=== PATIENT | female | born 1935 | race Caucasian/White ===

== ENCOUNTER → 2016-12-13 | Outpatient (CLI) | payer MEDICARE, OTHER ==
[2016-12-13 13:08] LABS: BLOOD UREA NITROGEN 32 mg/dL (7-18)
[2016-12-13 13:36] LABS: ASPARTATE AMINO TRANSFERASE 36 U/L (15-37)
== END | disposition home or self-care (01) ==
LOC: CFH 10:41
PROVIDERS: ATTEND Family Medicine
DX: Z00.01 Encounter for general adult medical examination with abnormal findings (principal); E78.5 Hyperlipidemia, unspecified; F03.90 Unspecified dementia, unspecified severity, without behavioral disturbance, psychotic disturbance, mood disturbance, and anxiety; I10 Essential (primary) hypertension; N81.9 Female genital prolapse, unspecified; R79.9 Abnormal finding of blood chemistry, unspecified
CPT/HCPCS: 36415; 80053; 80061; 81003; 82306; 82607; 83036; 84443; 85025

== ENCOUNTER → 2017-02-28 | Outpatient (CLI) | payer MEDICARE, OTHER ==
[~2017-02-28] MED LIST: ALPRazolam 1MG TABLET ONE
== END | disposition home or self-care (01) ==
LOC: RAD 13:19
PROVIDERS: ATTEND Family Medicine
DX: S71.011A Laceration without foreign body, right hip, initial encounter (principal); M43.26 Fusion of spine, lumbar region; M25.451 Effusion, right hip; Z96.641 Presence of right artificial hip joint; X58.XXXA Exposure to other specified factors, initial encounter; Y93.89 Activity, other specified; Y92.89 Other specified places as the place of occurrence of the external cause; Y99.8 Other external cause status

== ENCOUNTER 2019-12-03 12:47 | Outpatient (CLI) | payer MEDICARE, OTHER | END 2019-12-03 23:59 | disposition home or self-care (01) | LOC: CVU 12:47 | PROVIDERS: ATTEND Physician Assistant Medical | DX: I65.23 Occlusion and stenosis of bilateral carotid arteries (principal); R09.89 Other specified symptoms and signs involving the circulatory and respiratory systems | CPT/HCPCS: 93880 ==

== ENCOUNTER 2020-02-18 11:25 | Observation (INO) | payer MEDICARE, OTHER ==
[~2020-02-18] VITALS: Ht 162.6 cm; Wt 74.0 kg
[2020-02-18 12:20] LABS: BASOPHILS # (AUTO) 0.05 x10^3/uL (0-0.1); BASOPHILS % (AUTO) 1 % (0-1); EOSINOPHILS # (AUTO) 0.33 x10^3/uL (0-0.4); EOSINOPHILS % (AUTO) 4 % (1-7); LYMPHOCYTES # (AUTO) 1.79 x10^3/uL (1-3.4); LYMPHOCYTES % (AUTO) 21 % (22-44); MD NO; MEAN CORPUSCULAR HEMOGLOBIN 31.1 pg (27.0-34.8); MEAN CORPUSCULAR HGB CONC 32.5 g/dL (32.4-35.8); MEAN CORPUSCULAR VOLUME 95.5 fL (80-100); MEAN PLATELET VOLUME 8.1 fL (7.4-10.4); MONOCYTES % (AUTO) 8 % (2-9); NEUTROPHILS # (AUTO) 5.48 x10^3/uL (1.8-6.8); NEUTROPHILS % (AUTO) 66 % (42-75); PLATELET COUNT 206 x10^3/uL (130-400); RED BLOOD COUNT 3.96 x10^6/uL (3.82-5.3); RED CELL DISTRIBUTION WIDTH 13.7 % (9.6-15.2)
[2020-02-18 12:29] LABS: ALBUMIN 3.7 g/dL (3.4-5.0); ANION GAP 6 mmol/L (5-15); CALCIUM 9.7 mg/dL (8.5-10.1); CHLORIDE 101 mmol/L (98-107)
[2020-02-18 12:34] LABS: ALANINE AMINOTRANSFERASE 22 U/L (12-78); ALKALINE PHOSPHATASE 37 U/L (45-117); BILIRUBIN,TOTAL 0.9 mg/dL (0.2-1.0); TOTAL PROTEIN 7.6 g/dL (6.4-8.2)
[2020-02-18] MEDS: POTASSIUM CHLORIDE 20 MEQ in LACTATED RINGERS 1,000 ML IV SCH (13:12)
--- NOTE | 2020-02-18 13:20 | NUR ---
DAUGHTER AT BEDSIDE. PT RESTING WITH EYES CLOSED. CONTINUE TO MONITOR
[2020-02-18] MEDS ORDERED: POLYETHYLENE GLYCOL 17 GM PACKET PO PRN (13:30)
[2020-02-18] MEDS ORDERED: ONDANSETRON 2MG/ML, 2ML IVPush PRN (13:30)
[2020-02-18] MEDS ORDERED: MELATONIN 5 MG TABLET PO PRN (13:30)
[2020-02-18] MEDS ORDERED: ACETAMINOPHEN 325 MG TABLET PO PRN (13:30)
[2020-02-18] MEDS ORDERED: ONDANSETRON ODT 4 MG PO PRN (13:30)
[2020-02-18] MEDS ORDERED: AMLO10TA8 PO (13:51)
[2020-02-18] MEDS ORDERED: ASPI-496 PO (13:51)
[2020-02-18] MEDS ORDERED: DONE10TA14 PO (13:51)
[2020-02-18] MEDS ORDERED: LEVO75TA PO (13:51)
[2020-02-18] MEDS ORDERED: RISE35TA PO (13:51)
[2020-02-18] MEDS ORDERED: METO200T47 PO (13:51)
[2020-02-18] MEDS ORDERED: MEMA10TA PO (13:51)
[2020-02-18] MEDS ORDERED: ROPI0.5T4 PO (13:51)
[2020-02-18] MEDS ORDERED: GABA600T7 PO ×2 (13:51)
[2020-02-18 13:59] LABS: TROPONIN I < 0.015 ng/mL (0.000-0.045)
[2020-02-18] MEDS ORDERED: ENOXAPARIN 40 MG/0.4 ML SQ SCH (14:00)
--- NOTE | 2020-02-18 14:00 | NUR ---
TO CT VIA [facility]
[2020-02-18] MEDS ORDERED: OMEG1CAP6 PO (14:25)
[2020-02-18] MEDS ORDERED: CALC300T5 PO ×2 (14:25)
--- NOTE | 2020-02-18 14:35 | NUR ---
UOB WITH ASSISTANCE AND ONTO COMMODE. PT NOTED TO HAVE CLOUDY URINE, SENT TO LAB
[2020-02-18 14:45] LABS: MICROSCOPIC AUTO
--- NOTE | 2020-02-18 14:49 | NUR ---
THROUGHPUT RN::SPOKE WITH ISAI FOR ROOM 508. STATED HE HAS ALREAADY READ THROUGH THE CHART. DOES NOT NEEDS REPORT. HAD QUESTION ABOUT D-DIMER, STATED HE WILL CALL HOSPITALIST.
--- NOTE | 2020-02-18 14:57 | NUR ---
ADDITIONAL REPORT TO TANNER SILVERIO ALONG WITH PREVIOUS REPORT FROM S[facility]H
[2020-02-18 15:53] VITALS: BP 139/78
[2020-02-18] MEDS: ENOXAPARIN 30 MG/0.3 ML SQ SCH (15:57)
[2020-02-18] MEDS ORDERED: CEFTRIAXONE PMX 1GM/50ML 50 ML IV SCH (16:30)
[2020-02-18 19:29] LABS: TROPONIN I < 0.015 ng/mL (0.000-0.045)
[2020-02-18 20:50] VITALS: BP 123/71
[2020-02-18] MEDS: ROPINIROLE 0.5MG TABLET PO SCH (20:59)
[2020-02-18] MEDS: MEMANTINE 10MG TABLET PO SCH (20:59)
[2020-02-18] MEDS ORDERED: GABAPENTIN 300 MG CAPSULE PO SCH (21:00)
[2020-02-18] MEDS ORDERED: DONEPEZIL 10 MG TABLET PO SCH (21:00)
[2020-02-19 02:48] VITALS: BP 149/72
[2020-02-19] MEDS: POTASSIUM CHLORIDE 20 MEQ in LACTATED RINGERS 1,000 ML IV SCH ×2 (03:54→17:08)
[2020-02-19 05:30] LABS: BASOPHILS # (AUTO) 0.07 x10^3/uL (0-0.1); BASOPHILS % (AUTO) 1 % (0-1); EOSINOPHILS # (AUTO) 0.29 x10^3/uL (0-0.4); EOSINOPHILS % (AUTO) 5 % (1-7); LYMPHOCYTES # (AUTO) 2.13 x10^3/uL (1-3.4); LYMPHOCYTES % (AUTO) 35 % (22-44); MD NO; MEAN CORPUSCULAR HEMOGLOBIN 31.3 pg (27.0-34.8); MEAN CORPUSCULAR HGB CONC 32.9 g/dL (32.4-35.8); MEAN CORPUSCULAR VOLUME 95.3 fL (80-100); MEAN PLATELET VOLUME 8.4 fL (7.4-10.4); MONOCYTES # (AUTO) 0.67 x10^3/uL (0.2-0.8); MONOCYTES % (AUTO) 11 % (2-9); NEUTROPHILS # (AUTO) 2.93 x10^3/uL (1.8-6.8); NEUTROPHILS % (AUTO) 48 % (42-75); PLATELET COUNT 180 x10^3/uL (130-400); RED BLOOD COUNT 3.51 x10^6/uL (3.82-5.3)
[2020-02-19 05:40] LABS: ALBUMIN 3.2 g/dL (3.4-5.0); ANION GAP 6 mmol/L (5-15); CALCIUM 8.9 mg/dL (8.5-10.1); CHLORIDE 107 mmol/L (98-107)
[2020-02-19 05:43] LABS: ALANINE AMINOTRANSFERASE 18 U/L (12-78); ALKALINE PHOSPHATASE 29 U/L (45-117); BILIRUBIN,TOTAL 0.7 mg/dL (0.2-1.0); CREATININE 1.07 mg/dL (0.55-1.02); TOTAL PROTEIN 6.5 g/dL (6.4-8.2)
[2020-02-19] MEDS ORDERED: LEVOTHYROXINE 75 MCG TABLET PO SCH (06:00)
[2020-02-19 07:22] VITALS: BP 128/69
[2020-02-19] MEDS ORDERED: OMEGA-3/FISH OIL CAPSULE PO SCH (09:00)
[2020-02-19] MEDS: ROPINIROLE 0.5MG TABLET PO SCH ×2 (09:00→17:07)
[2020-02-19] MEDS ORDERED: SENNA/DOCUSATE TABLET PO SCH (09:00)
[2020-02-19] MEDS ORDERED: ASPIRIN 81 MG TABLET EC PO SCH (09:00)
[2020-02-19] MEDS ORDERED: METOPROLOL SUCCINATE 50 MG TAB.ER.24H PO SCH (09:00)
[2020-02-19] MEDS ORDERED: GABAPENTIN 300 MG CAPSULE PO SCH (09:00)
[2020-02-19] MEDS ORDERED: AMLODIPINE 5 MG TABLET PO SCH (09:00)
[2020-02-19] MEDS: MEMANTINE 10MG TABLET PO SCH (09:38)
[2020-02-19 09:42] VITALS: BP 142/55
[2020-02-19 13:37] VITALS: BP 158/73
[2020-02-19] MEDS ORDERED: OMNIPAQUE 350 MG/ML, 75ML BOTTLE ONE (14:49)
[2020-02-19] MEDS: ENOXAPARIN 30 MG/0.3 ML SQ SCH (17:07)
[2020-02-19] MEDS ORDERED: AMOX500T PO (17:17)
== END 2020-02-19 20:13 | disposition home or self-care (01) ==
LOC: ED 12:38 → INTOOBSV 13:07 → EDIP 13:07 → SUATTDRO 13:09 → 5SO 15:13
PROVIDERS: ADMIT Internal Medicine; ATTEND Internal Medicine
DX: R55 Syncope and collapse (principal); E86.1 Hypovolemia; R53.1 Weakness; G89.29 Other chronic pain; M54.9 Dorsalgia, unspecified; F03.90 Unspecified dementia, unspecified severity, without behavioral disturbance, psychotic disturbance, mood disturbance, and anxiety; R79.89 Other specified abnormal findings of blood chemistry; I12.9 Hypertensive chronic kidney disease with stage 1 through stage 4 chronic kidney disease, or unspecified chronic kidney disease; N18.3 Chronic kidney disease, stage 3 (moderate); N17.9 Acute kidney failure, unspecified; N39.0 Urinary tract infection, site not specified; B95.1 Streptococcus, group B, as the cause of diseases classified elsewhere; E03.9 Hypothyroidism, unspecified; I25.10 Atherosclerotic heart disease of native coronary artery without angina pectoris; I65.29 Occlusion and stenosis of unspecified carotid artery; Z79.82 Long term (current) use of aspirin; Z79.899 Other long term (current) drug therapy; Z87.440 Personal history of urinary (tract) infections; Z87.891 Personal history of nicotine dependence
CPT/HCPCS: 36415; 70450; 70498; 71045; 73502; 78582; 80053; 81001; 84484; 85025; 85379; 87086; 87147; 93005; 93306; 96361; 96365; 96372; 97162; 99285; A9540; A9558; G0378; J0696; J1650; J3480; J7120; Q9967